=== PATIENT | female | born 1945 | race Caucasian/White ===

== ENCOUNTER 2019-09-27 16:58 | Inpatient (IN) ==
[2019-09-27] MEDS ORDERED: Insulin Human Regular 10 UNIT in 0.9 % Sodium Chloride 10 ML IV ONE (18:19)
[2019-09-27] MEDS ORDERED: Calcium Chloride 1,000 MG in 0.9 % Sodium Chloride 100 ML IVPB ONE (18:19)
[2019-09-27] MEDS ORDERED: *HR* Dextrose 50 % in Water (Syg) 50 ML SYRINGE IVP ONE (18:19)
[2019-09-27 18:31] LABS: Basophils # 0.1 K/mcL (0.0-0.2); Basophils % 1.4 %; Eosinophils % 0.5 %; Hematocrit 32.2 % (35.3-44.9); Hemoglobin 10.1 g/dL (11.5-15.4); Immature Granulocytes % 1.1 % (0-4); Lymphocytes % 33.8 %; Mean Corpuscular HGB Conc 31.4 g/dL (31.6-35.5); Mean Corpuscular Hemoglobin 30.6 pg (28.0-33.3); Mean Corpuscular Volume 97.6 fL (83.0-100.0); Mean Platelet Volume 9.1 fL (9.4-12.4); Monocytes # 0.2 K/mcL (0.0-1.3); Monocytes % 4.6 %; Neutrophils # 2.2 K/mcL (1.6-8.9); Red Cell Distribution Width 15.4 % (11.5-14.5); Segmented Neutrophils % 58.6 %; White Blood Count 3.7 K/mcL (4.3-11.1)
[2019-09-27 18:32] LABS: Lymphocytes # 1.3 K/mcL (0.6-4.6)
[2019-09-27 18:34] LABS: Platelet Count 103 K/mcL (140-400)
[2019-09-27] MEDS ORDERED: Calcium Gluconate 1gm/50mL 1 GM/50 ML BAG IVPB ONE ×2 (18:40→19:00)
[2019-09-27 18:50] LABS: Reactive Lymphocytes Present (Not Present)
[2019-09-27] MEDS ORDERED: *HR* Dextrose 50 % in Water (Syg) 50 ML SYRINGE ONE (19:00)
[2019-09-27] MEDS ORDERED: Calcium Gluconate 1gm/50mL 2 GM/100 ML BAG IVPB ONE (19:01)
[2019-09-27 19:22] LABS: BUN/Creatinine Ratio 18 (6-26); Blood Urea Nitrogen 31 mg/dL (8-23); Calcium 8.8 mg/dL (8.6-10.3); Carbon Dioxide 24 mEq/L (23-29); Chloride 108 mEq/L (98-107); Glucose 109 mg/dL (70-105); Osmolality,Calculated 297 (280-300); Potassium 6.6 mEq/L (3.5-5.1); Sodium 140 mEq/L (136-145); Troponin I < 0.03 ng/mL (< 0.04); eGFR For African Americans 35 (> 60); eGFR For Non-African Americans 29 (> 60)
[2019-09-27] MEDS ORDERED: 0.9 % Sodium Chloride 1,000 ML IVC ONE (19:28)
[2019-09-27] MEDS ORDERED: Ondansetron 4 MG/2 ML VIAL IVP PRN (20:36)
[2019-09-27] MEDS ORDERED: Acetaminophen 325 MG TABLET PO PRN (20:36)
[2019-09-27] MEDS ORDERED: Naloxone 0.4 MG/ML INJ IVP PRN (20:36)
[2019-09-27] MEDS ORDERED: *HR* LORazepam 1 MG TABLET PO PRN (20:39)
[2019-09-27 21:00] LABS: INR 1.1; Prothrombin Time 12.3 Seconds (9.4-12.1)
[2019-09-27] MEDS ORDERED: Albuterol 2.5 MG/3 ML NEBULIZER IH SCH (21:00)
[2019-09-27] MEDS ORDERED: Albuterol 2.5 MG/3 ML NEBULIZER IH ONE (21:14)
[2019-09-27 21:48] LABS: Calcium 9.3 mg/dL (8.6-10.3); Potassium 5.5 mEq/L (3.5-5.1)
[2019-09-27 22:19] LABS: Estimated Average Glucose 123 mg/dl
[2019-09-27 22:31] LABS: Alanine Aminotransferase 12 Units/L (7-52); Albumin 4.2 g/dL (3.5-5.7); Albumin/Globulin Ratio 1.6 (1.1-2.2); Alkaline Phosphatase 58 Units/L (34-104); Aspartate Amino Transferase 21 Units/L (13-39); Bilirubin,Direct 0.2 mg/dL (0.0-0.2); Bilirubin,Indirect 0.4 mg/dL (0.0-1.0); Bilirubin,Total 0.6 mg/dL (0.3-1.0); Globulin 2.7 g/dL (2.4-3.5); Lactate Dehydrogenase 205 Units/L (140-271); Magnesium 2.1 mg/dL (1.6-2.6); Total Protein 6.9 g/dL (6.4-8.9)
[2019-09-27] MEDS: 0.9 % Sodium Chloride 1,000 ML IVC SCH (23:16)
[2019-09-28 01:53] LABS: Eosinophils % 0.4 %; Red Cell Distribution Width 15.1 % (11.5-14.5)
[2019-09-28 01:55] LABS: Basophils # 0.1 K/mcL (0.0-0.2); Basophils % 1.1 %; Hematocrit 32.6 % (35.3-44.9); Immature Granulocytes % 0.6 % (0-4); Immature Platelets 1.1 % (1.1-6.1); Lymphocytes # 1.6 K/mcL (0.6-4.6); Lymphocytes % 34.8 %; Mean Corpuscular HGB Conc 30.7 g/dL (31.6-35.5); Mean Corpuscular Hemoglobin 29.1 pg (28.0-33.3); Mean Corpuscular Volume 94.8 fL (83.0-100.0); Monocytes # 0.3 K/mcL (0.0-1.3); Monocytes % 5.8 %; Neutrophils # 2.7 K/mcL (1.6-8.9); Platelet Count 102 K/mcL (140-400); Red Blood Count 3.44 M/mcL (3.82-4.97); Segmented Neutrophils % 57.3 %; White Blood Count 4.7 K/mcL (4.3-11.1)
[2019-09-28 01:57] LABS: Calcium 8.8 mg/dL (8.6-10.3); Potassium 4.3 mEq/L (3.5-5.1)
[2019-09-28 02:10] LABS: Platelet Estimate Decreased (Normal)
[2019-09-28] MEDS: 0.9 % Sodium Chloride 1,000 ML IVC SCH (12:56)
[2019-09-28 14:12] LABS: Calcium 8.1 mg/dL (8.6-10.3); Potassium 5.2 mEq/L (3.5-5.1)
[2019-09-28 14:56] LABS: Bilirubin,Urine Negative (Negative); Blood,Urine Negative (Negative); Clarity,Urine Clear (Clear); Color,Urine Yellow (Yellow); Glucose,Urine (UA) Normal (Normal); Hyaline Casts,Urine Few per lpf (None Seen); Ketones,Urine Negative (Negative); Leukocyte Esterase,Urine Small (Negative); Mucus,Urine Few per lpf (None-Few); Nitrite,Urine Negative (Negative); Protein,Urine Trace mg/dL (Neg-Trace); RBC,Urine 0-3 per hpf (0-3); Specific Gravity,Urine 1.021 (1.010-1.025); Squamous Epithelial Cell,Urine Few per hpf (None-Few); Transitional Epi Cells,Urine Few per hpf (None-Few)
[2019-09-28 14:57] LABS: Sodium, Urine 162.3 mEq/L
[2019-09-28 14:58] LABS: Protein/Creatinine Ratio,Urine 0.23 mg/mg (0.00-0.20)
[2019-09-28] MEDS ORDERED: *HR* LORazepam 2 MG/ML VIAL IM ONE (19:33)
[2019-09-29 01:53] LABS: Magnesium 1.6 mg/dL (1.6-2.6); Potassium 4.9 mEq/L (3.5-5.1)
[2019-09-29 02:13] LABS: Basophils # 0.1 K/mcL (0.0-0.2); Basophils % 1.4 %; Eosinophils % 1.1 %; Hematocrit 28.6 % (35.3-44.9); Hemoglobin 8.5 g/dL (11.5-15.4); Immature Granulocytes % 0.3 % (0-4); Lymphocytes # 1.9 K/mcL (0.6-4.6); Lymphocytes % 51.5 %; Mean Corpuscular HGB Conc 29.7 g/dL (31.6-35.5); Mean Platelet Volume 9.7 fL (9.4-12.4); Monocytes # 0.2 K/mcL (0.0-1.3); Monocytes % 5.5 %; Neutrophils # 1.5 K/mcL (1.6-8.9); Red Blood Count 3.04 M/mcL (3.82-4.97); Red Cell Distribution Width 15.1 % (11.5-14.5); Segmented Neutrophils % 40.2 %; White Blood Count 3.6 K/mcL (4.3-11.1)
[2019-09-29 02:14] LABS: Mean Corpuscular Volume 94.1 fL (83.0-100.0); Platelet Count 85 K/mcL (140-400)
[2019-09-29 03:01] LABS: Platelet Estimate Slight Decrease (Normal); Reactive Lymphocytes Present (Not Present)
[2019-09-29 07:10] VITALS: BP 145/75
[2019-09-30 05:20] LABS: Kappa Qnt Free Light Chains 218.23 mg/L (3.30-19.40); Lambda Qnt Free Light Chains 68.92 mg/L (5.71-26.30)
== END 2019-09-29 10:04 | disposition home or self-care (01) | DRG 683 ==
LOC: EMEROOARM 16:58 → 2ANU 16:58 → SUATTDRO 20:14 → 2ANU 21:32
PROVIDERS: ADMIT Internal Medicine; ATTEND Student in an Organized Health Care Education/Training Program